=== PATIENT | female | born 1980 | race Caucasian/White ===

== ENCOUNTER 2017-08-16 09:24 | Emergency (ER) | payer OTHER ==
[2017-08-16 10:00] VITALS: BP 104/76
--- NOTE | 2017-08-16 10:11 | UC ---
Skin Complaint HPI - HPI Summary HPI Summary: 37 y/o female presents to the urgent care c/o itchy rash w/ vesicles nn her RT arm and RT side of face s/p exposure to poison harini in her yard yesterday. She touch the plants and then rubbed her Rt cheek and minutes later rash appeared. Pt washed affected side w/ water and have used OTC topical cream to alleviate symptoms w/o any improvement.Pt denies fever, pain, MACHADO,SOB, difficulty breathing, abdominal pain, N/V/D. - History of Current Complaint Chief Complaint: UCRash Time Seen by Provider: 08/16/17 10:09 Stated Complaint: RIGHT ARM/FACIAL SKIN COMPLAINT Hx Obtained From: Patient Hx Last Menstrual Period: 08/07/2017 ?: No Onset/Duration: Sudden Onset, Lasting Days - 1 day, Still Present, Worse Since - this morning Skin Exposure Onset/Duration: Days Ago - 1 Timing: Constant Onset Severity: Mild Current Severity: Moderate Pain Intensity: 2 Pain Scale Used: 0-10 Numeric Location: Discrete, Face - RT cheek, Hand (Right) - RT forearm Character: Pruritus, Redness Aggravating Factor(s): Touch Alleviating Factor(s): OTC Meds Associated Signs & Symptoms: Positive: Rash - w/ vesicles Related History: Possible Reaction to: Environmental Exposure - poison harini - Allergy/Home Medications Allergies/Adverse Reactions: Allergies Allergy/AdvReac Type Severity Reaction Status Date / Time No Known Allergies Allergy Verified 08/16/17 09:52 Home Medications: Home Medications Oral Contraceptive 1 tab PO DAILY 08/16/17 [History] Pnv No.95/Ferrous Fum/Folic AC [ Tablet] 1 each PO DAILY 08/16/17 [ History Confirmed 08/16/17] Review of Systems Constitutional: Negative Skin: Rash - RT forearm, and Rt cheek, Other - itchiness Eyes: Negative ENT: Negative Respiratory: Negative Cardiovascular: Negative Gastrointestinal: Negative Genitourinary: Negative Motor: Negative Neurovascular: Negative Musculoskeletal: Negative Neurological: Negative Psychological: Negative Is Patient Immunocompromised?: No All Other Systems Reviewed And Are Negative: Yes PMH/Surg Hx/FS Hx/Imm Hx Previously Healthy: Yes - Pt denies PMHX - Surgical History Surgical History: None - Family History Known Family History: Positive: None - Pt denies FMHX - Social History Occupation: Employed Full-time Lives: With Family Alcohol Use: Occasionally Substance Use Type: None Smoking Status (MU): Former Smoker When Did the Patient Quit Smoking/Using Tobacco: 2007 Physical Exam - Summary Physical Exam Summary: Vital Signs Reviewed: Yes General: well developed, well nourished female sitting in the examining table w/ o any apparent distress. Eyes: Positive: Conjunctiva Clear - PERRLA, EOMI ENT: Positive: Normal ENT inspection, Hearing grossly normal, Pharynx normal, TMs normal Neck: Positive: Supple, Nontender, No Lymphadenopathy Respiratory: Positive: Chest nontender, Lungs clear, Normal breath sounds Cardiovascular: Positive: RRR, No Murmur, Pulses Normal Abdomen Description: Positive: Nontender, No Organomegaly, Soft. Negative: CVA Tenderness (R), CVA Tenderness (L) Bowel Sounds: Positive: Present Musculoskeletal: Positive: Strength Intact, ROM Intact, No Edema Neurological Exam: Normal Psychological Exam: Normal Skin: Positive: rashes: RT forearm and RT cheek w/ scattered erythematous blisters and vesicles, particularly in linear streaks w/ mild signs of excoriation, no drainage observed, non tender to palpation. Triage Information Reviewed: Yes Vital Signs: Initial Vital Signs Temp 98.5 F 08/16/17 09:53 Pulse 64 08/16/17 09:53 Resp 16 08/16/17 09:53 BP 104/76 08/16/17 09:53 Pulse Ox 99 08/16/17 09:53 Course/Dx - Course Course Of Treatment: 37 y/o female presents to the urgent care c/o itchy rash w / vesicles nn her RT arm and RT side of face s/p exposure to poison harini in her yard yesterday. She touch the plants and then rubbed her Rt cheek and minutes later rash appeared. Pt washed affected side w/ water and have used OTC topical cream to alleviate symptoms w/o any improvement.Pt denies fever, pain, MACHADO,SOB, difficulty breathing, abdominal pain, N/V/D. Hx obtained. Pt w/ moderate erythematous vesicular eruption s/p exposure to poinson Harini. PT Rx Prednisone PO taper dose and Triamcinolone topical cream and advises to continue taking Benadryl PO for pruritus. 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 Avoid sun exposure. 2-Take Prednisone PO as directed to alleviate symptoms. Take Benadryl PO OTC q6hrs to alleviate itchiness 3-If symptoms do not improve or worsen please f/u with your PCP or return to the urgent care for further evaluation and treatment. - Billing Disposition and Condition Condition: STABLE Disposition: HOME
== END 2017-08-16 10:40 | disposition home or self-care (01) ==
LOC: UCCORT 09:24
DX: R21 Rash and other nonspecific skin eruption (principal); Z87.891 Personal history of nicotine dependence
CPT/HCPCS: 99202; G0463